=== PATIENT | female | born 1995 | race American Indian/Alaskan Native ===

== ENCOUNTER 2018-03-23 10:41 | Emergency (ER) | payer SELFPAY ==
[2018-03-23 10:51] VITALS: BP 118/69
[2018-03-23 11:23] LABS: Bilirubin,Urine NEG (Negative); Blood,Urine NEG (Negative); Color,Urine Yellow (Yellow); Mucus,Urine 1+ /HPF; Protein,Urine <15 mg/dL mg/dL (Negative); Urobilinogen,Urine < 2.0 mg/dL (<2.0)
[2018-03-23 11:39] LABS: Basophils % (Auto) 0.9 % (0.0-1.8); Eosinophils # (Auto) 0.1 K/mm3 (0.0-0.4); Eosinophils % (Auto) 1.8 % (0.0-4.3); Lymphocytes # (Auto) 1.3 K/mm3 (1.2-5.4); Lymphocytes % (Auto) 37.2 % (13.4-35.0); Mean Corpuscular HGB Conc 36 % (30-34); Mean Corpuscular Hemoglobin 30 pg (28-32); Mean Corpuscular Volume 83 fl (79-97); Monocytes # (Auto) 0.2 K/mm3 (0.0-0.8); Monocytes % (Auto) 5.5 % (0.0-7.3); Platelet Count 217 K/mm3 (140-440); Red Blood Count 5.11 M/mm3 (3.65-5.03); Red Cell Distribution Width 14.4 % (13.2-15.2)
[2018-03-23 11:40] LABS: Hematocrit 42.4 % (30.3-42.9); Hemoglobin 15.2 gm/dl (10.1-14.3)
--- NOTE | 2018-03-23 12:13 | Emergency Department Report ---
Blank Doc - Documentation Documentation: Patient presents to [facility] for a rash to her genital region that occurred 5 days ago. Patient states that now the rash is completely resolved. The patient does endorse being sexually active. Patient states she started using condoms after she noticed a rash. Patient also complains of diffuse abdominal pain. Care will be transferred to the [facility]
[2018-03-23 12:48] LABS: Alanine Aminotransferase 16 units/L (7-56); Albumin 4.3 g/dL (3.9-5); BUN/Creatinine Ratio 14; Blood Urea Nitrogen 10 mg/dL (7-17); Calcium 9.6 mg/dL (8.4-10.2); Hemolysis Index 1
--- NOTE | 2018-03-23 13:13 | Emergency Department Report ---
ED Abdominal Pain HPI - General Chief Complaint: Abdominal Pain Stated Complaint: ABD PAIN Time Seen by Provider: 03/23/18 11:51 Source: patient Mode of arrival: Ambulatory Limitations: No Limitations - History of Present Illness Initial Comments: 23-year-old [place] female comes in stating abdominal pain and nausea vomiting 2 days. Patient reports that she's had a rash on her vaginal area from using condoms but that has resolved. Patient reports that she's been able to drink and eat since being here in the emergency room. Patient does admit to urinary urgency or frequency and no blood in the urine. Patient denies any dysuria fever chills. She has no known drug allergies currently takes no medications on a daily basis. She is sexually active. Last LMP 02/24/2018 MD Complaint: abdominal pain -: days(s) (2) Location: suprapubic Radiation: none Migration to: no migration Severity: mild Severity scale (0 -10): 5 Quality: aching Consistency: intermittent, colicky Improves With: nothing Worsens With: nothing Associated Symptoms: nausea (that has resolved today), vomiting (that has resolved today). denies: diarrhea, fever, constipation, dysuria - Related Data Previous Rx's Medication Instructions Recorded Last Taken Type Acetaminophen/Codeine [Tylenol #3] 1 tab PO Q6H PRN #12 tab 02/25/16 Unknown Rx Famotidine [Pepcid] 20 mg PO BID #28 tablet 02/25/16 Unknown Rx Cephalexin [Keflex] 500 mg PO Q12HR #14 cap 03/23/18 Unknown Rx Fluconazole [Diflucan] 150 mg PO QDAY #1 tablet 03/23/18 Unknown Rx Allergies Allergy/AdvReac Type Severity Reaction Status Date / Time [place] Allergy Itching Uncoded 02/25/16 13:09 ED Review of Systems ROS: Stated complaint: ABD PAIN Other details as noted in HPI Constitutional: denies: chills, fever Respiratory: denies: cough, shortness of breath, wheezing Gastrointestinal: abdominal pain (suprapubic), nausea (resolved), vomiting ( resolved) Genitourinary: urgency, frequency. denies: dysuria, discharge Musculoskeletal: denies: back pain, joint swelling, arthralgia Skin: rash (resolved). denies: lesions Neurological: denies: headache, weakness, paresthesias Psychiatric: denies: anxiety, depression Hematological/Lymphatic: denies: easy bleeding, easy bruising ED Past Medical Hx - Past Medical History Hx Asthma: Yes - Surgical History Past Surgical History?: No - Social History Smoking Status: Never Smoker Substance Use Type: Marijuana - Medications Home Medications: Home Medications Medication Instructions Recorded Confirmed Last Taken Type Acetaminophen/Codeine [Tylenol #3] 1 tab PO Q6H PRN #12 tab 02/25/16 Unknown Rx Famotidine [Pepcid] 20 mg PO BID #28 tablet 02/25/16 Unknown Rx Cephalexin [Keflex] 500 mg PO Q12HR #14 cap 03/23/18 Unknown Rx Fluconazole [Diflucan] 150 mg PO QDAY #1 tablet 03/23/18 Unknown Rx ED Physical Exam - General Limitations: No Limitations General appearance: alert, in no apparent distress - Head Head exam: Present: atraumatic, normocephalic - Eye Eye exam: Present: normal appearance - ENT ENT exam: Present: mucous membranes moist - Neck Neck exam: Present: normal inspection - Respiratory Respiratory exam: Present: normal lung sounds bilaterally. Absent: respiratory distress - Cardiovascular Cardiovascular Exam: Present: regular rate, normal rhythm. Absent: systolic murmur, diastolic murmur, rubs, gallop - GI/Abdominal GI/Abdominal exam: Present: soft, normal bowel sounds - Extremities Exam Extremities exam: Present: normal inspection - Back Exam Back exam: Present: normal inspection - Neurological Exam Neurological exam: Present: alert, oriented X3 - Psychiatric Psychiatric exam: Present: normal affect, normal mood - Skin Skin exam: Present: warm, dry, intact, normal color. Absent: rash ED Course Vital Signs 03/23/18 10:47 Temperature 98.6 F Pulse Rate 107 H Respiratory 16 Rate Blood Pressure 118/69 O2 Sat by Pulse 100 Oximetry ED Medical Decision Making - Lab Data Result diagrams: 03/23/18 11:20 03/23/18 11:20 - Medical Decision Making Patient has been evaluated by this provider as well as Dr. Krueger. Patient had labs done which show she has a urinary tract infection. Discussed the patient I will place her on antibiotics she requested Diflucan since she gets yeast infections after antibiotic use. Discussed the patient to follow-up to primary care provider symptoms persist or gets worse. Critical care attestation.: If time is entered above; I have spent that time in minutes in the direct care of this critically ill patient, excluding procedure time. ED Disposition Clinical Impression: UTI (urinary tract infection) Qualifiers: Urinary tract infection type: acute cystitis Hematuria presence: with hematuria Qualified Code(s): N30.01 - Acute cystitis with hematuria Disposition: TO HOME OR SELFCARE Is pt being admited?: No Does the pt Need Aspirin: No Condition: Stable Instructions: Abdominal Pain (ED) Additional Instructions: Please complete antibiotics as prescribed. Please void/urinate after having sexual intercourse. Please follow up with her primary care provider if symptoms persist or gets worse. Prescriptions: Cephalexin [Keflex] 500 mg PO Q12HR #14 cap Fluconazole [Diflucan] 150 mg PO QDAY #1 tablet Referrals: PRIMARY CARE, [Primary Care Provider] - 3-5 Days Forms: Work/School Release Form(ED)
== END 2018-03-23 13:24 | disposition home or self-care (01) ==
LOC: ED 10:41
DX: N39.0 Urinary tract infection, site not specified (principal); Z91.018 Allergy to other foods; J45.909 Unspecified asthma, uncomplicated
CPT/HCPCS: 36415; 80053; 81001; 84703; 85025; 99283

== ENCOUNTER 2022-03-25 21:41 | Emergency (ER) | payer SELFPAY ==
[2022-03-25 22:06] VITALS: BP 127/79
== END 2022-03-26 04:00 | disposition left against medical advice (07) ==
LOC: ED 21:41
DX: M54.50 Low back pain, unspecified (principal); Z53.21 Procedure and treatment not carried out due to patient leaving prior to being seen by health care provider